=== PATIENT | male | born 1945 | race Asian ===

== ENCOUNTER → 2016-06-09 | Outpatient (CLI) | payer OTHER, BC ==
[~2016-06-09] MED LIST: ALLO100T PO; BIMA0.01 OPR; CLC6 PO; DILT120C68 PO; METO-217 PO; VITAMIN D PO
[2016-06-09 09:20] LABS: MEAN CELL VOLUME 87.3 fL (80-100); MEAN CORPUSCULAR HEMOGLOBIN 30.7 pg (25-34); MEAN CORPUSCULAR HGB CONC 35.2 g/dl (32-36); MEAN PLATELET VOLUME 10.9 fL (7.4-10.4); PLATELET COUNT 206 K/uL (130-400); WHITE BLOOD COUNT 5.88 K/uL (4.8-10.8)
[2016-06-09 09:24] LABS: URINE APPEARANCE CLEAR (CLEAR); URINE BILIRUBIN NEG (NEG); URINE COLOR YELLOW; URINE EPITHELIAL CELL AUTO 0-5 /lpf (0-5); URINE NITRITE NEG (NEG); UROBILINOGEN NEG (NEG)
[2016-06-09 09:26] LABS: MANUAL MICROSCOPIC REQUIRED? NO; REVIEW REQ? NO
[2016-06-09 09:27] LABS: BLOOD UREA NITROGEN 17 mg/dl (7-18); BUN/CREATININE RATIO 15.5 (10-20); CALCIUM 8.4 mg/dl (8.5-10.1); CARBON DIOXIDE 31 mmol/L (21-32); CHLORIDE 105 mmol/L (98-107); GLUCOSE 107 mg/dl (70-99); MAGNESIUM 2.2 mg/dl (1.8-2.4); POTASSIUM 3.7 mmol/L (3.5-5.1); SODIUM 141 mmol/L (136-145); URIC ACID 5.6 mg/dl (2.6-7.2)
[2016-06-09 09:30] LABS: CHOLESTEROL 202 mg/dl (0-200); CHOLESTEROL/HDL RATIO 3.3; HDL CHOLESTEROL 61 mg/dl; LDL CHOLESTEROL CALCULATED 122 mg/dl; PHOSPHORUS 2.4 mg/dl (2.5-4.9); TRIGLYCERIDES 94 mg/dl (0-150); VERY LOW DENSITY LIPOPROT CALC 19 mg/dl
[2016-06-09 10:06] LABS: RATIO 230.4 mcg/mg (0-30.0)
== END | disposition home or self-care (01) ==
LOC: C.LAB 07:15
DX: N18.3 Chronic kidney disease, stage 3 (moderate) (principal); I12.9 Hypertensive chronic kidney disease with stage 1 through stage 4 chronic kidney disease, or unspecified chronic kidney disease; I48.91 Unspecified atrial fibrillation; M10.9 Gout, unspecified; I42.9 Cardiomyopathy, unspecified; Z13.220 Encounter for screening for lipoid disorders

== ENCOUNTER → 2016-11-22 | Day surgery (SDC) | payer OTHER, BC ==
[2016-11-07 14:05] VITALS: Ht 167.6 cm; Wt 59.1 kg
[~2016-11-22] VITALS: Ht 167.6 cm; Wt 59.1 kg
[~2016-11-22] MED LIST changes: -ALLO100T PO; +BRIMONIDINE TART 0.2% OP SOLN PER DROP CHARGE OPR ONE; +BRIMONIDINE TART 0.2% OP SOLN PER DROP CHARGE OPR SCH; +BRIMONIDINE TARTRATE 0.2% 5ML OP SCH; -CLC6 PO; +PILOCARPINE HCL 2% OP SOLN PER DROP CHARGE OPR SCH; +PROPARACAINE 0.5% OP SOLN PER DROP CHARGE OPR SCH; +PrednisoLONE ACET 1% OP SUSP 5 ML BTL OP SCH; +PrednisoLONE ACET 1% OP SUSP 5 ML BTL OPR ONE
--- NOTE | 2016-11-22 11:10 | History and Physical: Surg Cnt ---
History & Physical Date Nov 22, 2016. Chief Complaint glaucoma History of Present Illness The patient is a 71 year old male with complaints of uncontrolled open angle glaucoma, right eye Past Medical/Surgical History nephrectomy, gout, HTN Additional History Hepatic Disease: No Endocrine Disorder: No Kidney Disease: Yes Hypertension: Yes Heart Disease: No Bleeding Tendencies: No Infectious Diseases: No Allergies Coded Allergies: Iodine (Verified Allergy, Unknown, RASH, 11/07/16) Home Medications Scheduled Bimatoprost (Lumigan), 1 DROPS OPR QPM Diltiazem Hcl Ext Rel (Tiazac), 120 MG PO QAM Metoprolol Succinate (Toprol Xl), 50 MG PO BID [Vitamin D], 1 TAB PO QAM Physical Examination Skin: warm/dry, no rash Eyes: normal inspection, EOMI, sclerae normal ENT: normal ENT inspection, pharynx normal Head: normocephalic, atraumatic Neck: supple, no adenopathy, trachea midline Respiratory/Chest: lungs clear, normal breath sounds, no respiratory distress Cardiovascular: regular rate, rhythm, no edema, no murmur Abdomen / GI: normal bowel sounds, non tender Back: normal inspection Extremities: normal inspection, normal range of motion Neurologic/Psych: no motor/sensory deficits, alert, normal reflexes, oriented x 3 Diagnosis glaucoma, right eye ASA Classification: ASA Class II Plan of Treatment Stable for SLT right eye
[2016-11-22 11:21] VITALS: BP 153/104; PULSE 67; O2SAT 95
--- NOTE | 2016-11-22 11:22 | Discharge Instructions-SurgCtr ---
Discharge Instructions Date of Service Nov 22, 2016. Visit Reason for Visit: Glaucoma Right Eye Discharge Discharge Diagnosis / Problem: cataract Discharge Goals Goal(s): Improve function Activity Recommendations Activity Limitations: per Instructions/Follow-up section Instructions / Follow-Up Instructions / Follow-Up ACTIVITY RECOMMENDATIONS: * No limitations RETURN TO SCHOOL/WORK: * No limitations DIET: * No limitations MEDICATIONS: Resume previous medications unless instructed otherwise by your surgeon. * Please use Prednisolone acetate drops prescription given to you at your office appointment as follows: 1 drop in effected eye 4 times a day for 5 days. * Continue all glaucoma drops as usual with no interruption to either eye. SPECIAL CARE INSTRUCTIONS: Call your doctor at with any concerns or problems. FOLLOW UP VISIT: Follow-up with Dr Bruno in 1 hour. Diet Recommendations Home Diet: resume previous diet Pending Studies Studies pending at discharge: no Medical Emergencies . Who to Call and When: Medical Emergencies: If at any time you feel your situation is an emergency, please call 911 immediately. . Non-Emergent Contact Non-Emergency issues call your: Express Manager . . "Provider Documentation" section prepared by Hugo Bruno. .
--- NOTE | 2016-11-22 11:23 | [facility] Operative Report ---
Operative Report Date of Service Nov 22, 2016. Operative Report Diagnosis: Glaucoma, right eye Procedure: SLT superior 180 degrees, 52 spots, 1.2-1.4 mJ Complications: none I attest to the content of the Intraoperative Record and any orders documented therein. Any exceptions are noted below.
== END | disposition home or self-care (01) ==
LOC: X.SURG 10:05
PROVIDERS: ATTEND Ophthalmology
DX: H40.10X0 Unspecified open-angle glaucoma, stage unspecified (principal)

== ENCOUNTER → 2017-01-16 | Outpatient (CLI) | payer OTHER, BC ==
[~2017-01-16] MED LIST changes: -BRIMONIDINE TART 0.2% OP SOLN PER DROP CHARGE OPR ONE; -BRIMONIDINE TART 0.2% OP SOLN PER DROP CHARGE OPR SCH; -BRIMONIDINE TARTRATE 0.2% 5ML OP SCH; -PILOCARPINE HCL 2% OP SOLN PER DROP CHARGE OPR SCH; -PROPARACAINE 0.5% OP SOLN PER DROP CHARGE OPR SCH; -PrednisoLONE ACET 1% OP SUSP 5 ML BTL OP SCH; -PrednisoLONE ACET 1% OP SUSP 5 ML BTL OPR ONE
[2017-01-16 12:42] LABS: URINE APPEARANCE CLEAR (CLEAR); URINE BILIRUBIN NEG (NEG); URINE COLOR YELLOW; URINE EPITHELIAL CELL AUTO 0-5 /lpf (0-5); URINE NITRITE NEG (NEG); URINE PH 5.5 (4.5-7.5); URINE SPECIFIC GRAVITY 1.023 (1.000-1.030); UROBILINOGEN NEG (NEG)
[2017-01-16 12:47] LABS: REVIEW REQ? NO
[2017-01-16 12:48] LABS: MANUAL MICROSCOPIC REQUIRED? NO
[2017-01-16 13:03] LABS: BLOOD UREA NITROGEN 18 mg/dl (7-18); CALCIUM 8.6 mg/dl (8.5-10.1); CARBON DIOXIDE 30 mmol/L (21-32); CHLORIDE 105 mmol/L (98-107); CREATININE 1.02 mg/dl (0.60-1.40); GLUCOSE 85 mg/dl (70-99); POTASSIUM 3.8 mmol/L (3.5-5.1); SODIUM 140 mmol/L (136-145); URIC ACID 5.1 mg/dl (2.6-7.2)
[2017-01-16 13:04] LABS: PHOSPHORUS 2.8 mg/dl (2.5-4.9)
== END | disposition home or self-care (01) ==
LOC: C.LAB 11:02
DX: I12.9 Hypertensive chronic kidney disease with stage 1 through stage 4 chronic kidney disease, or unspecified chronic kidney disease (principal); N18.3 Chronic kidney disease, stage 3 (moderate)